=== PATIENT | female | born 1940 | race African-American/Black ===

== ENCOUNTER → 2016-11-14 | Outpatient (CLI) | payer BC ==
--- NOTE | 2016-11-14 09:43 | RAD ---
DATE: 11/14/2016 EXAM: DIGITAL SCREEN BILAT W/CAD HISTORY: Routine screening COMPARISON: 06/29/2012, 09/10/2013 This study was interpreted with the benefit of Computerized Aided Detection (CAD). The breast parenchyma is heterogeneously dense, which could reduce sensitivity of mammography. Breast parenchyma level C. FINDINGS: No new or enlarging breast densities are seen. Benign type calcifications are present bilaterally. No suspicious microcalcifications have developed. IMPRESSION: Stable mammograms without evidence of malignancy. BI-RADS CATEGORY: 2 BENIGN FINDING(S) RECOMMENDED FOLLOW-UP: 12M 12 MONTH FOLLOW-UP PQRS compliance statement: Patient information was entered into a reminder system with a target due date for the next mammogram. Mammography is a sensitive method for finding small breast cancers, but it does not detect them all and is not a substitute for careful clinical examination. A negative mammogram does not negate a clinically suspicious finding and should not result in delay in biopsying a clinically suspicious abnormality. "Our facility is accredited by the [employer] Mammography [employer]."
== END | disposition home or self-care (01) ==
LOC: MAMMO 09:18
PROVIDERS: ATTEND Family Medicine
DX: Z12.31 Encounter for screening mammogram for malignant neoplasm of breast (principal)
CPT/HCPCS: G0202; 77067

== ENCOUNTER → 2018-05-11 | Outpatient (CLI) | payer BC ==
--- NOTE | 2018-05-11 15:55 | RAD ---
DATE: 05/11/2018 EXAM: MAMMO YELITZA SCREENING BILATERAL HISTORY: Routine screening. COMPARISON: Previous mammogram from 2017. This study was interpreted with the benefit of Computerized Aided Detection (CAD). FINDINGS: Breast Density: DENSE The breast Parenchyma is dense, which could reduce the sensitivity of mammography. Breast parenchyma level density D.. The skin and nipples are within normal limits. Benign-appearing bilateral scattered calcifications. No suspicious ossifications, spiculated mass or area of architectural distortion. IMPRESSION: No mammographic evidence of malignancy. Stable mammogram. BI-RADS CATEGORY: 2 BENIGN FINDING(S) RECOMMENDED FOLLOW-UP: 12M 12 MONTH FOLLOW-UP PQRS compliance statement: Patient information was entered into a reminder system with a target due date for the next mammogram. Mammography is a sensitive method for finding small breast cancers, but it does not detect them all and is not a substitute for careful clinical examination. A negative mammogram does not negate a clinically suspicious finding and should not result in delay in biopsying a clinically suspicious abnormality. "Our facility is accredited by the [employer] Mammography [employer]."
== END | disposition home or self-care (01) ==
LOC: MAMMO 10:37
PROVIDERS: ATTEND Family Medicine
DX: Z12.31 Encounter for screening mammogram for malignant neoplasm of breast (principal)
CPT/HCPCS: 77063; 77067

== ENCOUNTER → 2019-09-06 | Outpatient (CLI) | payer BC ==
--- NOTE | 2019-09-06 16:24 | RAD ---
BILATERAL SCREENING MAMMOGRAM, 3-D History: Routine screening. Comparison: 05/11/2018, 11/14/2016, 09/10/2013. Technique: MLO and CC digital tomosynthesis (3D) images obtained. Radiologist reviewed these images on dedicated workstation. Findings: Breast Tissue Density C : The breasts are heterogeneously dense, which may obscure small masses. There are no dominant masses, suspicious microcalcifications, or architectural distortion. IMPRESSION: No mammographic evidence of malignancy. Recommend routine screening. BI-RADS category 1: Negative. The images were reviewed with computer-aided detection. Patient information is entered into reminder system with a target due date for the next screening mammogram. Mammography is the most sensitive method for finding small breast cancers, but it does not detect them all and is not a substitute for careful clinical examination. A negative mammogram does not negate a clinically suspicious finding and should not result in delay in biopsying a clinically suspicious abnormality. "Our facility is accredited by the [employer] Mammography [employer]." Electronically signed by: Gene Lara MD (09/06/2019 4:21 PM) [facility]
== END ==
LOC: MAMMO 10:21
PROVIDERS: ATTEND Family Medicine
DX: Z12.31 Encounter for screening mammogram for malignant neoplasm of breast (principal)
CPT/HCPCS: 77063; 77067

== ENCOUNTER → 2020-09-07 | Outpatient (CLI) | payer BC ==
--- NOTE | 2020-09-07 13:52 | RAD ---
EXAMINATION: MG BILAT SCREEN+YELITZA CLINICAL HISTORY: Screening TECHNIQUE: Digital craniocaudal and mediolateral oblique views of the bilateral breasts obtained with 3-D tomosynthesis. COMPARISON: 09/06/2019, 05/11/2018, 11/14/2016 BREAST COMPOSITION: The breasts are heterogeneously dense, which may obscure small masses. FINDINGS: No evidence of suspicious mass, calcifications, or areas of architectural distortion. IMPRESSION: No mammographic evidence of malignancy. BI-RADS ASSESSMENT: Category 1: Negative RECOMMENDATION: Return for routine bilateral screening mammogram in one year. PQRS compliance statement - Patient information was entered into a reminder system with a target due date for the next mammogram. "Our facility is accredited by the [employer] Mammography [employer]." Electronically signed by: Iker Dunne DO (09/07/2020 1:49 PM) [email or web address]
== END ==
LOC: MAMMO 10:53
PROVIDERS: ATTEND Surgery Plastic and Reconstructive Surgery
DX: Z12.31 Encounter for screening mammogram for malignant neoplasm of breast (principal)
CPT/HCPCS: 77063; 77067

== ENCOUNTER → 2020-11-07 | Outpatient (CLI) | payer BC ==
[~2020-11-07] MED LIST: ACET-1871 PO; ASCO100T4 PO; CALC500T54 PO; CHOL10004 PO; CYAN25008 PO; LISI20TA18 PO; MULT-245 PO; SIMV40TA18 PO; tylenol pm PO
--- NOTE | 2020-11-07 09:58 | PDOC1 ---
INITIAL PAIN CONSULT DATE OF SERVICE: DOS: DATE: 11/07/20 TIME: 09:53 CHIEF COMPLAINT: Chief Complaint: Low back and right greater than left lower extremity pain HISTORY OF PRESENT ILLNESS: 80-year-old female presents with history of pain low back bilateral lower extremities right greater than left present bilaterally for about 1 year not resolve any specific injury or accident that she is aware of is getting worse with standing or walking changing positions she is been taking care of her who has Alzheimer's and has put a lot of strain on her back she reports patient reports is worse with standing or standing still such as doing dishes or preparing a meal and with walking the pain is exacerbated decreased with sitting but after about 20 minutes the pain becomes unbearable with sitting as well she must change positions. Patient reports best when she lays down generally not awaken her from sleep more than once or twice a night but it does awaken her from sleep patient reports is not effective bowel bladder control but does affec t her ability to walk however does not use any assistive devices. Patient has had physical therapy recently and is doing very well for her neck which had some issues but the back has not responded and she still doing stretching strength exercises on her own patient continues to take Tylenol and Advil both of which helped only by about 30% patient reports no loss of motor function but significant fatigability with the lower extremities with standing and walking. Patient scribes pain is sharp intermittent intensity but always present changes during the day with activity radiating into the posterior gluteus posterior thighs again worse on the right than the left and an aching quality as well. 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 Patient had MRI scan lumbar spine dated July 06, 2020 showing multilevel degenerative changes most significant L3-4 with disc degenerative disc disease and bulging disc L4-5 with facet arthropathy and ligament flavum thickening and degenerative disc disease with mild left neuroforaminal narrowing and mild central canal stenosis with degenerative findings resulting in mild left neuroforaminal narrowing and mild central stenosis at L3-4 as well as degenerative disc disease at L5-S1 with mild left greater than right neuroforaminal narrowing without central spinal stenosis. PAST MEDICAL HISTORY: PMH: Arthritis, hypertension, hyperlipidemia PREVIOUS SURGERIES: Past Surgical Hx: Tubal ligation CURRENT MEDICATIONS: Current Meds: Active Scripts Medications Dose Route/Sig Max Daily Dose Days Date Category Dose Instructions Multi Vitamin Daily (Multivitamin) 1 Each Tablet 1 Tab PO DAILY 30 11/07/20 Reported Calcium (Calcium Carbonate) 500 Mg Tab.chew 100 Mg PO DAILY 11/07/20 Reported Vitamin C (Ascorbic Acid) 100 Mg Tablet Unknown Dose PO DAILY 11/07/20 Reported Vitamin B12 (Cyanocobalamin (Vitamin B-12)) 2,500 Mcg Tablet Unknown Dose PO DAILY 11/07/20 Reported Vitamin D3 (Vitamin D) 25 Mcg Tablet Unknown Dose PO DAILY 11/07/20 Reported 1,000 UNITS = 25 MCG Simvastatin 40 Mg Tablet 1 Tab PO QHS 11/07/20 Reported Lisinopril 20 Mg Tablet 1 Tab PO DAILY 11/07/20 Reported [tylenol pm] 500 Mg PO HS 11/07/20 Reported Acetaminophen Ext.release (Acetaminophen) 650 Mg Tablet.er 2 Tab PO BID 21 11/07/20 Reported ALLERGIES; Allergies: Coded Allergies: No Known Drug Allergies (Unverified , 11/07/20) FAMILY HISTORY: Family Hx: Hyperlipidemia hypertension and Alzheimer's SOCIAL HISTORY: Social Hx: Patient does not lyly alcohol does not smoke so he is in a legal listed recreational drugs is lives with her spouse and is her caregiver is retired [employer] and lives in [facility] REVIEW OF SYSTEMS: ROS: Positive for those items mentioned in history of present illness, all systems are reviewed, otherwise negative ,and are complete full and well-documented on patient's chart. PHYSICAL EXAM: VS: Blood pressures 141/90 pulse 59 respirations 16 temperature is 98.2 F height is 5 foot 1 his weight is 148 pounds PE: PHYSICAL EXAMINATION: GENERAL: The patient is awake, alert, oriented, appropriate, very pleasant in demeanor. HEENT: Shows normocephalic, atraumatic. Extraocular movements are intact and symmetrical. Oral cavity: Mucous membranes moist and pink. NECK: Shows anterior throat supple without palpable lymphadenopathy noted. Swallow reflex symmetrical. CHEST: Shows normal on inspection. Breath sounds are clear bilaterally, distant but no rales rhonchi wheezes also. HEART: Shows S1, S2 clear. No murmurs auscultated. ABDOMEN: Soft, nontender, nondistended, obese. No palpable organomegaly is noted. No rebound or guarding demonstrated. BACK: Shows spine grossly in the midline. Normal-appearing cervical lordotic curvature. There is slightly increased thoracic kyphosis, some minor flattening of the lumbar lordotic curvature. Lumbar paraspinous muscles show symmetrical on inspection, on palpation shows some moderate tenderness diffusely throughout the upper, middle and lower distribution of the paraspinous muscles bilaterally and also into the lower thoracic paraspinous musculature, firm and tender, but without specific trigger points, without radiation of pain. The patient has good rotational motion of the lumbar spine, both laterally as well as extension and flexion without significant difficulty. No tenderness over the spinous processes, sacrum or sacroiliac regions. EXTREMITIES: Lower extremities show deep tendon reflexes 2+ in the patellar and tendo calcaneus tendons. Motor exam is 4 on a scale of 5 with right dorsiflexion, extension, quadriceps and hamstring flexion and 5/5 on the left. Peripheral pulses are 1+ posterior tibial. No peripheral edema is noted bilaterally. Lower extremities are warm and dry to touch, equal in color and appearance. Straight leg raise noted to be positive on the right about 40 degrees, left side is negative. Gaenslen's and Seamus's maneuvers are negative bilaterally as well. The patient is able to stand, stand on her toes but has difficulty getting up from a seated position uses the arms of the chair, walks with a slight favoring gait does appear to favor the right lower extremity slightly not use any assistive device such as canes or walker to ambulate. SKIN: Shows warm and dry, good turgor. No edema. No sores, rashes or bruising throughout. IMPRESSION: Impression: 80-year-old female with approximate 1 year history of low back bilateral lower extremity pain right greater than left in a radicular fashion following L4-5 dermatomal distribution. MRI scan lumbar spine as noted arthritis hypertension hyperlipidemia Plan: Options were discussed with the patient including conservative medical management physical therapies interventional techniques. Patient is done physical therapies and is doing stretching on her own now and taking oral analge sics without significant improvement she back to pursue interventional techniques. We discussed a lumbar epidural steroid injections description as well as anatomical models to describe the procedure. Patient will wait for preauthorization with her insurance provider once this is obtained we'll have her return for a translaminar approach L4-5 level lumbar epidural steroid injection with fluoroscopic guidance at that time. In the meantime, patient will continue with stretching strength exercise and oral analgesics as currently. CHARLOTTE RASHID MD Nov 07, 2020 09:58
== END | disposition home or self-care (01) ==
LOC: PNCL 08:31
PROVIDERS: ATTEND Anesthesiology
DX: M54.5 Low back pain (principal); M79.605 Pain in left leg; M19.90 Unspecified osteoarthritis, unspecified site; I10 Essential (primary) hypertension; E78.5 Hyperlipidemia, unspecified; M51.36 Other intervertebral disc degeneration, lumbar region; Z79.899 Other long term (current) drug therapy; Z98.51 Tubal ligation status; Z98.890 Other specified postprocedural states; Z82.49 Family history of ischemic heart disease and other diseases of the circulatory system
CPT/HCPCS: G0463

== ENCOUNTER → 2020-11-21 | Outpatient (CLI) | payer BC ==
[~2020-11-21] MED LIST changes: +IOHEXOL 180 MG/ML 10 ML VIAL. ONE; +methylPREDNISolone ACETATE 80 MG/ML VIAL. ONE
--- NOTE | 2020-11-21 08:36 | PDOC ---
Progress Note - Pain Clinic Date of Service: DOS: DATE: 11/21/20 TIME: 08:32 Diagnosis: Dx: Lumbar radiculopathy with lumbar degenerative disc disease and lumbar spinal stenosis History or Present Illness: HPI: 80-year-old female returns for follow-up status post initial evaluation complaining of pain low back and bilateral lower extremities patient reports in the posterior gluteus posterior hip and lateral thighs anterior thighs medial thighs worse on the right than the left patient reports is better with sitting down and bending over but is been waking her from sleep much more frequently than on previous interview patient reports about every 5 hours or so awakens her from sleep onset becoming more noticeable and was not as significant on previous exam patient reports pain is radiating constant severe in the low back aching and dull in the lower extremities again worse on the right than left and present bilaterally. Patient reports 8 on scale 10 is worst 8 on average to its least is an 8 today patient reports no bowel or bladder incontinence no loss of motor function with significant fatigability of the right lower extremity with walking standing and she is not using any assistive devices however to ambulate at this time. Patient reports she is taking acetaminophen 650 mg, sometimes up to 3-4 times a day. We discussed that this is higher than recommended dosage and she will make adjustments as advised. Physical Exam: VS: Blood pressure 120/83 pulse 86 respiration 16 temperature 97.9 F weight is 147 pounds PE: PHYSICAL EXAMINATION: GENERAL: The patient is awake, alert, oriented, appropriate, very pleasant in demeanor HEENT: Shows normocephalic, atraumatic. Extraocular movements are intact and symmetrical. Oral cavity: Mucous membranes moist and pink. NECK: Shows anterior throat supple without palpable lymphadenopathy noted. Swallow reflex symmetrical. CHEST: Shows normal on inspection. Breath sounds are clear bilaterally, distant no rales rhonchi or wheeze auscultated. HEART: Shows S1, S2 clear. No murmurs auscultated. ABDOMEN: Soft, nontender, nondistended. No palpable organomegaly is noted. BACK: Shows spine grossly in the midline. Normal-appearing cervical lordotic curvature. There is increased thoracic kyphosis, some flattening of the lumbar lordotic curvature. Lumbar paraspinous muscles show symmetrical on inspection, on palpation shows some moderate tenderness diffusely throughout the upper, middle and lower distribution of the paraspinous muscles, but without specific trigger points, without radiation of pain. The patient has good rotational motion of the lumbar spine, both laterally as well as extension and flexion without significant difficulty. No tenderness over the spinous processes, sacrum or sacroiliac regions. EXTREMITIES: Lower extremities show deep tendon reflexes 2+ in the patellar and tendo calcaneus tendons. Motor exam is 4 on a scale of 5 with right dorsiflexion, extension, quadriceps and hamstring flexion and 5/5 on the left. Peripheral pulses are 1+ posterior tibial. No peripheral edema is noted bilaterally. Lower extremities are warm and dry to touch, equal in color and appearance. SKIN: Shows warm and dry, good turgor. No edema. No sores, rashes or bruising throughout. Procedure: Procedure: Options were discussed with the patient. Patient chart was reviewed as her current medication regimen updated current view of systems updated today as well. We will proceed with a lumbar epidural steroid injection today with fluoroscopic guidance. Risks were discussed including but not limited to: Bleeding, infection, possibility of epidural hematoma and subsequent neurological compromise, dural puncture, headaches, spinal cord and/or nerve damage, side effects of steroid medication, and poor results regarding pain control. Patient understands and wished to proceed. Patient return to clinic in approximate 2 weeks for follow-up, was counseled return appointment, activity level, and side effects to be aware of. Medication Injected: Med Injected: Procedure is lumbar epidural steroid injection under local anesthetic using sterile prep and drape at the L5-S1 level using C-arm fluoroscopic guidance in both AP and lateral views medications injected is 120 mg Depo-Medrol +10mL preservative-free normal saline and 2 mL contrast- condition at discharge is stable patient tolerated procedure well had no complications. Condition at Discharge: Condition at Discharge: Condition at discharge is stable, patient tolerated the procedure well and had no complications. CHARLOTTE RASHID MD Nov 21, 2020 08:36
--- NOTE | 2020-11-21 08:37 | PDOC4 ---
Procedure Note: ICD 10 Code: ICD 10 Code: M54.16 M4 8.06 M51.36 Procedure Note: Patient was consented for lumbar epidural steroid injection with fluoroscopic guidance. Risks were discussed including but not limited to: Bleeding, infection, possibility of epidural hematoma and subsequent neurological compromise, dural puncture, headaches, spinal cord and/or nerve damage, side effects of steroid medication, and poor results regarding pain control. Patient understands and wished to proceed. Procedure is lumbar epidural steroid injection under local anesthetic using mele rile prep and drape at the L5-S1 level using C-arm fluoroscopic guidance in both AP and lateral views medications injected is 120 mg Depo-Medrol +10mL preservative-free normal saline and 2 mL contrast- condition at discharge is stable patient tolerated procedure well had no complications. CHARLOTTE RASHID MD Nov 21, 2020 08:37
== END | disposition home or self-care (01) ==
LOC: PNCL 08:01
PROVIDERS: ATTEND Anesthesiology
DX: M51.16 Intervertebral disc disorders with radiculopathy, lumbar region (principal); M48.061 Spinal stenosis, lumbar region without neurogenic claudication; Z79.899 Other long term (current) drug therapy
CPT/HCPCS: 62323; J1040; Q9965

== ENCOUNTER → 2020-12-13 | Outpatient (CLI) | payer BC ==
[~2020-12-13] MED LIST changes: -IOHEXOL 180 MG/ML 10 ML VIAL. ONE; -methylPREDNISolone ACETATE 80 MG/ML VIAL. ONE
--- NOTE | 2020-12-13 14:20 | PDOC ---
Progress Note - Pain Clinic Date of Service: DOS: DATE: 12/13/20 TIME: 14:16 Diagnosis: Dx: Lumbar radiculopathy with lumbar degenerative disc disease and lumbar spinal stenosis History or Present Illness: HPI: 80-year-old female returns for follow-up status post lumbar epidural steroid injection x1. Patient reports about 50% improvement after the first injection with the pain still radiating the low back and into the right lower extremity as it was previously posterior gluteus posterior lateral thigh lateral anterior th igh anteromedial thigh and medial lower leg as well to the ankle patient reports is worse with walking standing changing positions better with sitting or laying down generally wakes her from sleep about once every 4 hours patient reports that during the first 2 weeks following her injection pain was much improved and she was sleeping much better doing increased activity distance walking doing household activities as well. Patient reports the pain is returning now however fairly significantly and is near baseline patient reports is a 9 on scale 10 is worse over the past week 8 on average and a 5 its least is a 5 today patient scribes as sharp and stabbing radiating into the right lower extremity as well as severe in the back itself. Patient reports better when she is moving around to some extent but standing for more than 5 to 10 minutes or walking for more than 15 to 20 minutes does exacerbate the pain and the radiating pain in the right lower extremity significantly. Patient reports no bowel or bladder in continence Physical Exam: VS: Blood pressure is 136/84 pulse 79 respirations 18 temperature 98.3 F height is 5 foot 1 his weight is 147 pounds PE: PHYSICAL EXAMINATION: GENERAL: The patient is awake, alert, oriented, appropriate, very pleasant in demeanor HEENT: Shows normocephalic, atraumatic. Extraocular movements are intact and symmetrical. Oral cavity: Mucous membranes moist and pink. NECK: Shows anterior throat supple without palpable lymphadenopathy noted. Swallow reflex symmetrical. CHEST: Shows normal on inspection. Breath sounds are clear bilaterally, distant but no rales or rhonchi. HEART: Shows S1, S2 clear. No murmurs auscultated. ABDOMEN: Soft, nontender, nondistended, obese. No palpable organomegaly is noted. BACK: Shows spine grossly in the midline. Normal-appearing cervical lordotic curvature. There is slightly increased thoracic kyphosis, some minor flattening of the lumbar lordotic curvature. Lumbar paraspinous muscles show symmetrical on inspection, on palpation shows some moderate tenderness diffusely throughout the upper, middle and lower distribution of the paraspinous muscles without specific trigger points, without radiation of pain. The patient has good rotational motion of the lumbar spine, both laterally as well as extension and flexion without significant difficulty. EXTREMITIES: Lower extremities show deep tendon reflexes 1+ in the patellar and tendo calcaneus tendons. Motor exam is 4 on a scale of 5 with right dorsiflexion, extension, quadriceps and hamstring flexion and 5/5 on the left. Peripheral pulses are 1+ posterior tibial. No peripheral edema is noted bilaterally. Lower extremities are warm and dry to touch, equal in color and appearance. SKIN: Shows warm and dry, good turgor. No edema. No sores, rashes or bruising throughout. Procedure: Procedure: Options were discussed with the patient. Patient chart reviews her current medication regimen updated current review of systems updated today as well. We will preauthorize patient for a second lumbar epidural steroid injection with fluoroscopic guidance. Patient continues to have significant clinical radiculopathy on the right and L4-5 dermatomal distribution. Patient continue with stretching strength exercises in the meantime, and also prescribe a Medrol Dosepak with instructions side effects aware of discussed with the patient. Once approved, patient return to clinic for translaminar approach L4-5 lumbar epidural steroid injection with fluoroscopic guidance at that time. Medication Injected: Med Injected: None Condition at Discharge: Condition at Discharge: Condition at discharge is stable. CHARLOTTE RASHID MD Dec 13, 2020 14:20
== END | disposition home or self-care (01) ==
LOC: PNCL 13:59
PROVIDERS: ATTEND Anesthesiology
DX: M51.16 Intervertebral disc disorders with radiculopathy, lumbar region (principal); M48.061 Spinal stenosis, lumbar region without neurogenic claudication; Z79.899 Other long term (current) drug therapy
CPT/HCPCS: 99212; G0463

== ENCOUNTER → 2021-01-02 | Outpatient (CLI) | payer BC ==
[~2021-01-02] MED LIST changes: +IOHEXOL 180 MG/ML 10 ML VIAL. ONE; +methylPREDNISolone ACETATE 40 MG/ML VIAL. ONE; +methylPREDNISolone ACETATE 80 MG/ML VIAL. ONE
--- NOTE | 2021-01-02 14:28 | PDOC4 ---
Procedure Note: ICD 10 Code: ICD 10 Code: M54.16 M4 8.06 M51.36 Procedure Note: Patient was consented for lumbar epidural steroid injection with fluoroscopic guidance. Risks were discussed including but not limited to: Bleeding, infection, possibility of epidural hematoma and subsequent neurological compromise, dural puncture, headaches, spinal cord and/or nerve damage, side effects of steroid medication, and poor results regarding pain control. Patient understands and wished to proceed. Procedure is lumbar epidural steroid injection under local anesthetic using mele rile prep and drape at the L5-S1 level using C-arm fluoroscopic guidance in both AP and lateral views medications injected is 120 mg Depo-Medrol +10mL preservative-free normal saline and 2 mL contrast- condition at discharge is stable patient tolerated procedure well had no complications. CHARLOTTE RASHID MD Jan 02, 2021 14:28
--- NOTE | 2021-01-02 14:28 | PDOC ---
Progress Note - Pain Clinic Date of Service: DOS: DATE: 01/02/21 TIME: 14:25 Diagnosis: Dx: Lumbar radiculopathy with lumbar degenerative disease and lumbar spinal stenosis History or Present Illness: HPI: 80-year-old female returns for follow-up status post lumbar epidural steroid injection with about 50% improvement November 21. Patient reports that she did well for several weeks the pain returning in the low back and now into the left lower extremity posterior gluteus posterior thigh posterior lateral thigh lateral anterior thigh medial thigh patient reports worse with walking standing changing positions better with lying down but still present wakes her from sleep occasionally patient reports rates a 9 on scale 10 is worse over the past week 8 on average and 8 its least is an 8 today patient reports aching sharp tingling burning on and off in intensity again better with sitting or laying down but worse with standing walking putting weight on her left leg. Patient reports no bowel or bladder incontinence and no loss of motor function with significant fatigability of the left leg and now some pain in the right posterior hip as well which is developed since her last visit which is becoming more noticeable and is not radiating as far but still into the left posterior gluteus with standing and especially with getting up out of a chair. Physical Exam: VS: Blood pressure is 130/80 pulse 71 respirations 16 temperature 98.3 F height is 5 foot 4 inches weight is 148 pounds PE: PHYSICAL EXAMINATION: GENERAL: The patient is awake, alert, oriented, appropriate, very pleasant in demeanor HEENT: Shows normocephalic, atraumatic. Extraocular movements are intact and symmetrical. Oral cavity: Mucous membranes moist and pink. NECK: Shows anterior throat supple without palpable lymphadenopathy noted. Swallow reflex symmetrical. CHEST: Shows normal on inspection. Breath sounds are clear bilaterally, distant no rales or rhonchi. HEART: Shows S1, S2 clear. No murmurs auscultated. ABDOMEN: Soft, nontender, nondistended, obese. No palpable organomegaly is noted. BACK: Shows spine grossly in the midline. Normal-appearing cervical lordotic curvature. There is increased thoracic kyphosis, some minor flattening of the lumbar lordotic curvature. Lumbar paraspinous muscles show symmetrical on inspection, on palpation shows some moderate tenderness diffusely throughout the upper, middle and lower distribution of the paraspinous muscles, but without specific trigger points, without radiation of pain. The patient has good rotational motion of the lumbar spine, both laterally as well as extension and flexion without significant difficulty. EXTREMITIES: Lower extremities show deep tendon reflexes 2+ in the patellar and tendo calcaneus tendons. Motor exam is 4 on a scale of 5 with right dorsiflexion, extension, quadriceps and hamstring flexion and 5/5 on the left. Peripheral pulses are 1+ posterior tibial. No peripheral edema is noted bilaterally. Lower extremities are warm and dry. SKIN: Shows warm and dry, good turgor. No edema. No sores, rashes or bruising throughout. Procedure: Procedure: Options were discussed with the patient. Patient chart was reviewed as her current medication regimen updated current review of systems updated today as well. We will proceed with a lumbar epidural steroid injection today with fluoroscopic guidance. Risks were discussed including but not limited to: Bleeding, infection, possibility of epidural hematoma and subsequent neurological compromise, dural puncture, headaches, spinal cord and/or nerve damage, side effects of steroid medication, and poor results regarding pain control. Patient understands and wished to proceed. Patient will return to clinic in approximately 2 weeks for follow-up, was counseled return appointment activity level and side effects to be aware of. Medication Injected: Med Injected: Procedure is lumbar epidural steroid injection under local anesthetic using sterile prep and drape at the L5-S1 level using C-arm fluoroscopic guidance in both AP and lateral views medications injected is 120 mg Depo-Medrol +10mL preservative-free normal saline and 2 mL contrast- condition at discharge is stable patient tolerated procedure well had no complications. Condition at Discharge: Condition at Discharge: Condition at discharge stable, pain tolerated the procedure well and had no complications. CHARLOTTE RASHID MD Jan 02, 2021 14:27
== END | disposition home or self-care (01) ==
LOC: PNCL 13:24
PROVIDERS: ATTEND Anesthesiology
DX: M51.16 Intervertebral disc disorders with radiculopathy, lumbar region (principal); M48.061 Spinal stenosis, lumbar region without neurogenic claudication; Z79.899 Other long term (current) drug therapy
CPT/HCPCS: 62323; J1030; J1040; Q9965